=== PATIENT | female | born 1960 | race Caucasian/White ===

== ENCOUNTER 2022-08-02 10:37 | Emergency (ER) | payer BC, SELFPAY ==
[2022-08-02 11:25] VITALS: BP 102/63; PULSE 100; RESP 18; TEMP 36.8; O2SAT 97
--- NOTE | 2022-08-02 12:14 | ED.URI ---
HPI - URI/Sore Throat General Chief Complaint: Upper Respiratory Infection Stated Complaint: Running Nose, Cough Time Seen by Provider: 08/02/22 12:14 History of Present Illness HPI Narrative: 61-year-old female presented for complaints of hoarse voice and sinus pressure worsening over the last week. She endorses mild cough and minimal sore throat. She states that the onset she had body aches and more severe sore throat pain which is. She is taking Sudafed, Coricidin, and [place] for symptoms. She denies shortness of breath, wheezing, nausea, vomiting, diarrhea, fevers or chills. Related Data Allergies Allergy/AdvReac Type Severity Reaction Status Date / Time Sulfa (Sulfonamide Allergy Severe RASH Verified 08/02/22 11:31 Antibiotics) Review of Systems Review of Systems: ROS per HPI [facility] Family History Family History Other Diabetes mellitus Social History Social History Smoking status: Never smoker Alcohol intake: current Exam Narrative: GENERAL: well-appearing, no acute distress. EYES: conjunctivae clear ENT: Mucous membranes moist. TMs pearly paul with normal light reflex bilaterally; no tragal tenderness. Oropharynx erythematous without lesions. Hoarse voice. No drooling, no trismus, uvula midline. No tripod positioning, hot potato voice, or soft palate swelling. NECK: Supple. No lymphadenopathy CHEST: Clear to auscultation, breath sounds equal. HEART: Regular rate and rhythm. No murmur heard. SKIN: Warm, dry, no rash. NEURO: Alert and oriented x3. Course Course Emergency Course: Patient is aware of diagnosis, understands and agrees to treatment plan. Anticipatory guidance given. Patient agrees to follow-up as directed and is aware of reasons to seek care at the emergency department. Portions of this record may have been created with voice recognition software Level of Care: Express Care Visit Vital Signs Vital signs: Vital Signs Temperature 98.2 F 08/02/22 11:25 Pulse Rate 100 08/02/22 11:25 Respiratory Rate 18 08/02/22 11:25 Blood Pressure 102/63 08/02/22 11:25 Pulse Oximetry 97 08/02/22 11:25 Oxygen Delivery Room Air 11/26/22 11:25 Temperature 98.2 F 08/02/22 11:25 Pulse Rate 100 08/02/22 11:25 Respiratory Rate 18 08/02/22 11:25 Blood Pressure 102/63 08/02/22 11:25 Pulse Oximetry 97 08/02/22 11:25 Oxygen Delivery Room Air 08/02/22 11:25 MDM - URI/Sore Throat MDM Narrative Medical decision making narrative: Advise supportive treatments. Patient is appropriate for outpatient treatment and follow-up. Differential Diagnosis Differential diagnosis: Likely upper respiratory infection, viral infection and pharyngitis Discharge Plan Discharge Clinical Impression: Upper respiratory infection Patient Disposition: Home, Self-Care Condition: Stable Instructions: Antibiotic Form, Rhinosinusitis (ED) Additional Instructions: Recommend Flonase spray and Zyrtec (or Claritin/Daphne) over the counter Cough syrup may cause drowsiness; avoid driving or take it at night time. Tylenol 1000mg every 8 hours as needed for pain Symptomatic treatment includes: rest, fluids, and increase humidity of the air at home. If no improvement or symptoms worsen within the next 3 days, start the antibiotic Follow up with your primary care provider in 1 week. Go to the ER for worsening symptoms or concerns. Prescriptions: New prednisone 20 mg tablet 40 mg PO DAILY 5 Days Qty: 10 0RF amoxicillin-pot clavulanate 875-125 mg tablet 1 tablet PO Q12H 7 Days Qty: 14 0RF Follow-up/Referrals: PHYSICIAN,[facility] [Primary Care Provider] - Time of Disposition: 12:20
== END 2022-08-02 12:25 | disposition home or self-care (01) ==
PROVIDERS: Emergency Provider Nurse Practitioner Family
DX: J06.9 Acute upper respiratory infection, unspecified (principal)
CPT/HCPCS: 99213; G0463